=== PATIENT | male | born 1930 | race Caucasian/White ===

== ENCOUNTER → 2017-01-03 | Outpatient (CLI) | payer MEDICARE, BC ==
[~2017-01-03] MED LIST: ASPI81CH3 PO; ATOR20TA PO; BACT800T5 PO; BENEPOW8 PO; BIO-POW TOP; FOLBTAB3 PO; GLUCTAB PO; OCUVTAB PO; RAMI10CA35 PO
[2017-01-03 09:18] LABS: BICARBONATE 27.8 MEQ/L (21.0-32.0); POTASSIUM 4.1 MEQ/L (3.5-5.1)
== END ==
LOC: PLAB 06:38
PROVIDERS: ATTEND Urology
DX: N18.9 Chronic kidney disease, unspecified (principal); Z85.46 Personal history of malignant neoplasm of prostate
CPT/HCPCS: 36415; 80048; 84153

== ENCOUNTER → 2017-04-07 | Outpatient (CLI) | payer MEDICARE, BC | LOC: PLAB 15:45 | PROVIDERS: ATTEND Urology | DX: Z85.46 Personal history of malignant neoplasm of prostate (principal) | CPT/HCPCS: 36415; 84153; 84403 ==

== ENCOUNTER → 2017-07-18 | Outpatient (CLI) | payer MEDICARE, BC ==
[~2017-07-18] MED LIST changes: +ACET-822 PO; +ASPI81CH CHEW; -ATOR20TA PO; +ATOR20TA15 PO; +DORZ2SOL15 EACH EYE; +FOLBTAB2 PO; +HYDR-3533 PO; +LEUP1INJ8 SQ; +METF500T PO; +OCUVCAP2 PO; +RAMI10CA PO; -RAMI10CA35 PO
[2017-07-18 09:55] LABS: ANION GAP 6 MEQ/L (5-15); AST (GOT) 17 U/L (15-37); BICARBONATE 27.7 MEQ/L (21.0-32.0); BLOOD UREA NITROGEN 21 MG/DL (7-18); CHLORIDE 104 MEQ/L (98-107); GLOMERULAR FILTRATION RATE 50 ML/MIN (>89); GLUCOSE,FASTING 119 MG/DL (74-99); POTASSIUM 4.2 MEQ/L (3.5-5.1); SODIUM (NA) 138 MEQ/L (136-145)
[2017-07-18 10:00] LABS: ALKALINE PHOSPHATASE 60 U/L (45-117); ALT (GPT) 13 U/L (12-78); TOTAL BILIRUBIN ADULT 0.7 MG/DL (0.2-1.0)
[2017-07-18 10:04] LABS: HEMATOCRIT 43.2 % (39.0-51.0); MEAN CELL VOLUME 89.5 FL (80.0-100.0); MEAN CORPUSCULAR HEMOGLOBIN 30.3 PG (27.0-34.0); MEAN CORPUSCULAR HGB CONC 33.9 % (32.0-36.0); PLATELET COUNT 231 TH/MM3 (150-450); RED BLOOD COUNT 4.83 MIL/MM3 (4.50-5.90); RED CELL DISTRIBUTION WIDTH 13.7 % (11.6-17.2); REVIEW FLAG FINAL; WHITE BLOOD COUNT 9.3 TH/MM3 (4.0-11.0)
[2017-07-18 17:17] LABS: HEMOGLOBIN A1a 1.1 %; HEMOGLOBIN A1b 2.1 %; HEMOGLOBIN P3 3.9 %
== END ==
LOC: PLAB 06:47
PROVIDERS: ATTEND Family Medicine
DX: I12.9 Hypertensive chronic kidney disease with stage 1 through stage 4 chronic kidney disease, or unspecified chronic kidney disease (principal); N18.9 Chronic kidney disease, unspecified; R73.09 Other abnormal glucose; R97.20 Elevated prostate specific antigen [PSA]; Z85.46 Personal history of malignant neoplasm of prostate
CPT/HCPCS: 36415; 80053; 83036; 84153; 84154; 85027

== ENCOUNTER → 2017-08-21 | Outpatient (CLI) | payer MEDICARE, BC ==
[~2017-08-21] MED LIST changes: -ASPI81CH3 PO; -BACT800T5 PO; -BENEPOW8 PO; -BIO-POW TOP; -FOLBTAB3 PO; -GLUCTAB PO; -OCUVTAB PO
[2017-08-21 12:22] LABS: AUTOMATED NEUTROPHIL # 5.7 TH/MM3 (1.8-7.7); BASOPHIL # 0.1 TH/MM3 (0-0.2); BASOPHIL % 0.6 % (0.0-2.0); EOSINOPHIL # 0.2 TH/MM3 (0-0.4); EOSINOPHIL % 2.5 % (0.0-4.0); HEMATOCRIT 41.7 % (39.0-51.0); HEMO FLAGS DIFF FINAL; LYMPH % 25.6 % (9.0-44.0); LYMPHOCYTE # 2.3 TH/MM3 (1.0-4.8); MEAN CELL VOLUME 90.2 FL (80.0-100.0); MEAN CORPUSCULAR HEMOGLOBIN 29.9 PG (27.0-34.0); MEAN CORPUSCULAR HGB CONC 33.2 % (32.0-36.0); NEUT % 64.3 % (16.0-70.0); PLATELET COUNT 276 TH/MM3 (150-450); RED BLOOD COUNT 4.62 MIL/MM3 (4.50-5.90); RED CELL DISTRIBUTION WIDTH 13.9 % (11.6-17.2); WHITE BLOOD COUNT 8.9 TH/MM3 (4.0-11.0)
[2017-08-21 12:28] LABS: APTT (PATIENT) 25.4 SEC (24.3-30.1); INTERNATIONAL NORMALIZED RATIO 0.9 RATIO; PROTHROMBIN TIME - PATIENT 10.3 SEC (9.8-11.6)
[2017-08-21 12:39] LABS: BLOOD, URINE NEG (NEG); GLUCOSE,URINE NEG (NEG); KETONE, URINE NEG (NEG); NITRITE,URINE NEG (NEG); PH, URINE 6.5 (5.0-8.5); URINE COLOR YELLOW (YELLW/STRAW)
[2017-08-21 12:40] LABS: ANION GAP 5 MEQ/L (5-15); AST (GOT) 14 U/L (15-37); BICARBONATE 29.2 MEQ/L (21.0-32.0); BLOOD UREA NITROGEN 15 MG/DL (7-18); CHLORIDE 105 MEQ/L (98-107); GLOMERULAR FILTRATION RATE 54 ML/MIN (>89); GLUCOSE,FASTING 92 MG/DL (74-99); POTASSIUM 4.3 MEQ/L (3.5-5.1); SODIUM (NA) 139 MEQ/L (136-145)
[2017-08-21 12:41] LABS: ALT (GPT) 13 U/L (12-78)
[2017-08-21 12:43] LABS: ALKALINE PHOSPHATASE 65 U/L (45-117); TOTAL BILIRUBIN ADULT 0.3 MG/DL (0.2-1.0)
[2017-08-21 12:44] LABS: COMMENT (UR) CULT NOT INDICATED; CULTURE IF INDICATED CULT NOT INDICATED
--- NOTE | 2017-08-21 12:58 | RADRPT ---
EXAM DATE/TIME: 08/21/2017 12:40 [facility] COMPARISON: No previous studies available for comparison. INDICATIONS : Evlauate for communicable diseases. MEDICAL HISTORY : Brain Mass SURGICAL HISTORY : None. ENCOUNTER: Initial ACUITY: 1 day PAIN SCORE: 0/10 LOCATION: Bilateral chest FINDINGS: PA and lateral views of the chest demonstrate the lungs to be symmetrically aerated without evidence of mass, infiltrate or effusion. The cardiomediastinal contours are unremarkable. Osseous structure s are intact. CONCLUSION: No acute disease. Kristian Gill MD on August 21, 2017 at 12:57 Board Certified Radiologist. This report was verified electronically.
--- NOTE | 2017-08-22 17:04 | EKG ---
Date Performed: 08/21/2017 Time Performed: 11:53:02 PTAGE: 86 years EKG: Sinus rhythm WITH FIRST DEGREE AV BLOCK ABNORMAL ECG NO PREVIOUS TRACING DOCTOR: Divina Howell Interpretating Date/Time 08/22/2017 17:03:02
== END ==
LOC: CPRE 11:29
PROVIDERS: ATTEND Neurological Surgery
DX: Z01.812 Encounter for preprocedural laboratory examination (principal); Z01.811 Encounter for preprocedural respiratory examination; Z01.810 Encounter for preprocedural cardiovascular examination; E03.9 Hypothyroidism, unspecified; G90.09 Other idiopathic peripheral autonomic neuropathy; E29.1 Testicular hypofunction; I44.0 Atrioventricular block, first degree; Z79.01 Long term (current) use of anticoagulants
CPT/HCPCS: 36415; 71020; 80053; 81001; 85025; 85610; 85730; 93005

== ENCOUNTER 2017-08-22 08:00 | Inpatient (IN) | payer MEDICARE, BC ==
[~2017-08-22] VITALS: Ht 182.9 cm; Wt 95.5 kg
[~2017-08-22 08:00] MED LIST changes: -ACET-822 PO; -ASPI81CH CHEW; -FOLBTAB2 PO; -HYDR-3533 PO
[2017-08-22] MEDS ORDERED: FOLBTAB2 PO (14:03)
[2017-08-27] VITALS (7 sets, daily range): BP systolic 126; BP diastolic 66; PULSE 56–84; RESP 16; TEMP 97.8; O2SAT 97–99
[2017-08-27] MEDS ORDERED: ceFAZolin 2 GM PREMIX 50 ML IV SCH (06:15)
[2017-08-27] MEDS ORDERED: SODIUM CHLORID 0.9% 500 ML IV PRN (06:15)
[2017-08-27] MEDS ORDERED: CHLORHEXIDINE GLUCONATE 2 % 1 PACK (2 CLOTHS) TOPICAL PRN (06:15)
[2017-08-27] MEDS ORDERED: SODIUM CHLOR 0.9% 1000 ML INJ 1,000 ML IV SCH (06:15)
[2017-08-27] MEDS ORDERED: METOPROLOL TARTRATE 25 MG TAB PO PRN (06:15)
[2017-08-27] MEDS ORDERED: LACTATED RINGER'S 1000 ML IV PRN (06:15)
[2017-08-27] MEDS ORDERED: POVIDONE IODINE 5% (ANTISEPSIS KIT) 4 APPLICATIONS EACH NARE PRN (06:15)
[2017-08-27] MEDS ORDERED: INSULIN HUMAN REGULAR 1,000 UNITS/10 ML VIAL SQ PRN (06:15)
[2017-08-27] MEDS ORDERED: ACET-822 PO (06:51)
[2017-08-27] MEDS ORDERED: ASPI81CH CHEW (06:51)
[2017-08-27] MEDS ORDERED: GELFOAM SIZE 100 ONE (07:08)
[2017-08-27] MEDS ORDERED: GENTAMICIN SULFATE 80 MG/2 ML VIAL ONE (07:08)
[2017-08-27] MEDS ORDERED: THROMBIN (TOPICAL) 5,000 UNIT VIAL ONE (07:08)
[2017-08-27] MEDS ORDERED: MANNITOL INJ 100 ML ONE (07:12)
[2017-08-27] MEDS ORDERED: BUPIVACAINE/EPINEPHRINE 0.5% 50 ML VIAL ONE (07:12)
[2017-08-27] MEDS ORDERED: FAMOTIDINE 20 MG/2 ML VIAL ONE (07:46)
[2017-08-27] MEDS ORDERED: ACETAMINOPHEN 1000 MG/100 ML 100 ML IV ONE (07:46)
[2017-08-27] MEDS ORDERED: ARTIFICIAL TEARS OPTH OINT 3.5 APPLIC/3.5 GM TUBO ONE (08:04)
[2017-08-27] MEDS ORDERED: DEXAMETHASONE SOD PHOS 4 MG/ML VIAL ONE (09:17)
[2017-08-27] MEDS ORDERED: levETIRAcetam 500 MG/5 ML VIAL IV ONE (10:10)
[2017-08-27] MEDS ORDERED: VECURONIUM BROMIDE 20 MG VIAL IV ONE (12:00)
[2017-08-27] MEDS ORDERED: STERILE WATER FOR INJECTION 20 ML VIAL IV ONE (12:00)
[2017-08-27] MEDS ORDERED: ONDANSETRON HCL 4 MG/2 ML VIAL IV PUSH ONE (12:00)
[2017-08-27] MEDS ORDERED: ROCURONIUM INJ 50 MG/5 ML SYRINGE IV PUSH ONE (12:00)
[2017-08-27] MEDS ORDERED: ePHEDrine/NS 25 MG/5 ML SYR IV ONE (12:00)
[2017-08-27] MEDS ORDERED: LIDOCAINE HCL 1% PF 5 ML AMPULE OTHER ONE (12:00)
[2017-08-27] MEDS ORDERED: PHENYLEPH/NS 1000 MCG/10 ML SYR IV ONE (12:00)
[2017-08-27] MEDS ORDERED: PROPOFOL 200 MG/20 ML AMP IV ONE (12:00)
[2017-08-27] MEDS ORDERED: DEXAMETHASONE SOD PHOS 4 MG/ML VIAL IV ONE (12:00)
[2017-08-27] MEDS ORDERED: PHENYLEPHRINE HCL 10 MG/ML VIAL IV ONE (12:00)
[2017-08-27] MEDS ORDERED: SUGAMMADEX SODIUM 200 MG/2 ML VIAL IV PUSH ONE ×2 (12:33)
[2017-08-27] MEDS ORDERED: DO NOT ADM ANY ANTICOAGULANT DRUGS PRN (13:25)
[2017-08-27] MEDS ORDERED: ACETAMINOPHEN/HYDROcodone 325 MG/10 MG TAB PO PRN ×2 (13:30)
[2017-08-27] MEDS ORDERED: LABETALOL HCL 100 MG/20 ML VIAL IV PUSH PRN (13:30)
[2017-08-27] MEDS ORDERED: GLUCAGON 1 MG/ML VIAL OTHER PRN ×2 (13:30→17:00)
[2017-08-27] MEDS ORDERED: ZOLPIDEM TARTRATE 5 MG TAB PO PRN (13:30)
[2017-08-27] MEDS ORDERED: PROMETHAZINE INJ 25 MG/ML VIAL IM PRN (13:30)
[2017-08-27] MEDS ORDERED: niCARdipine INJ 25 MG in SODIUM CHLOR 0.9% 250 ML INJ 250 ML IV PRN (13:30)
[2017-08-27] MEDS ORDERED: SODIUM CHLORIDE 0.9% FLUSH 10 ML FLUSH IV FLUSH PRN (13:30)
[2017-08-27] MEDS ORDERED: MAGNESIUM HYDROXIDE SUSP 30 ML CUP PO PRN (13:30)
[2017-08-27] MEDS ORDERED: ACETAMINOPHEN 325 MG TAB PO PRN (13:30)
[2017-08-27] MEDS ORDERED: MENTHOL LOZENGE BUCCAL PRN (13:30)
[2017-08-27] MEDS ORDERED: ONDANSETRON HCL 4 MG/2 ML VIAL IV PUSH PRN (13:30)
[2017-08-27] MEDS ORDERED: MORPHINE SULFATE 4 MG/ML INJ IV PUSH PRN (13:30)
[2017-08-27] MEDS ORDERED: POTASSIUM CHLOR 20 MEQ PREMIX 100 ML IV PRN (13:30)
[2017-08-27] MEDS ORDERED: RESP: ALBUTEROL 2.5 MG/3 ML NEB (PRN) NEB (13:30)
[2017-08-27] MEDS ORDERED: CALCIUM GLUCONATE INJ 1 GM in SODIUM CHLORIDE 0.9% INJ 100 ML IV PRN (13:30)
[2017-08-27] MEDS ORDERED: cloNIDine HCL 0.1 MG TAB PO PRN (13:30)
[2017-08-27] MEDS ORDERED: MAGNESIUM SULFATE INJ 2 GM in SODIUM CHLORIDE 0.9% INJ 100 ML IV PRN (13:30)
[2017-08-27] MEDS ORDERED: ALUMINUM/MAGNESIUM/SIMETH 30 ML CUP PO PRN (13:30)
[2017-08-27] MEDS ORDERED: LORazepam 2 MG/ML VIAL IV PUSH PRN ×4 (13:30→17:00)
[2017-08-27] MEDS ORDERED: *LABETALOL HCL 100 MG/20 ML VIAL PERIprocedural Use ONLY ONE (13:41)
--- NOTE | 2017-08-27 13:58 | PD.OP ---
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 endotracheal by Salvatore Barr Surgeon: Mustapha Clay M.D. Entry Level Receptionist(s): Madie Cunningham Operation and Findings: Following initiation of general endotracheal anesthesia the patient had invasive lines and Rodriguez catheter in place along with sequential compression device. A gram of vancomycin and Keppra as well as 10 mg Decadron was administered intravenously and he was positioned supine and head turned to the left side and secured in the [place] 3 pin headrest. The BrainBitWave navigation system was then registered with external landmarks and good accuracy confirmed. A right curvilinear frontoparietal temporal incision area head shaved and prepped with ChloraPrep and sterilely draped in the usual sterile fashion. Incision was then made after infiltrating the scalp was 0.5% Marcaine with epinephrine solution a skin incision made and Zuleyka clips were used at the scalp edges for hemostasis and the flap retracted with hooks. Right temporalis muscle and fascia was also incised and detached from the temporal bone and retracted with hooks. The scalp was retracted exposing the orbital rim as well as the zygomatic arch. With an automated leather novelty parts cutter of right orbitozygomatic junction doni hole temporal bur hole made and then with the craniotome the bone flap was elevated. The orbital roof was also drilled down for exposure the medial sylvian fissure. The sphenoid wing was also resected with rongeurs exposing the frontal skull base floor and the anterior portion of the temporal fossa with resection of temporal bone with the Leksell. The dura was very vascular overlying this mass in the temporal aspect which is cauterized with bipolar cautery. The dura opened adjacent to this sphenoid wing mass which was attached and originating from the dura. Further dissection was undertaken using microtechnique with microscope magnification. Several large multilobular mass adherent to the dura overlying the sphenoid wing extending into the sylvian fissure and carotid cistern. Resection of this mass was undertaken lesly Harrison using microtechnique microscope magnification along with the BrainLab navigation guidance. A circumferential dissection was undertaken with a staged approach from the frontal and temporal aspect. The mass was compressing on the frontal and temporal lobes but not invading the pial surface. There were several arterial feeders from the middle cerebral artery branches which were cauterized and clipped and circumferential dissection with cauterization of the capsule and any veins was also undertaken. This mass measured close to 6 cm in diameter and is fairly large. More medially this was encapsulated around the middle cerebral artery branches which were dissected out and preserved and a gross total resection achieved. Bipolar cautery used for hemostasis in the resection bed which was then lined with Surgicel and no bleeding was encountered at this point. Cavity was filled with saline solution and dura was also resected along with this mass circumferentially. The dural defect was then repaired with DuraGen sutured to the surrounding dura. A 7 mm subdural drain was placed exiting the temporal doni hole site and tunnel on the scalp and secured the exit site with a 3-0 nylon tie connected to a drainage bag. Bone flap approximated using Patience mini plates and bur hole covers. The area was then copiously irrigated. The temporalis fascia was approximated and using 2-0 Vicryl sutures and the galea reapproximated using 3-0 Vicryl interrupted sutures and final scalp closure was with chelsea. The Shannon head was then removed and a sterile pressing dressing applied. There were no intraoperative complications and all sponge and needle count was correct at the end of the procedure. Estimated blood loss about 300 cc. Patient was extubated and taken to the recovery room. Mustapha Clay MD Aug 27, 2017 13:58
--- NOTE | 2017-08-27 14:03 | RADRPT ---
EXAM DATE/TIME: 08/27/2017 13:37 [facility] COMPARISON: CHEST PA & LAT, August 21, 2017, 12:40. INDICATIONS : Left subclavian central line placement. MEDICAL HISTORY : Brain mass. SURGICAL HISTORY : None. ENCOUNTER: Initial ACUITY: 1 day PAIN SCORE: Non-responsive. LOCATION: Bilateral chest FINDINGS: The heart is normal in size. The mediastinal contours are within normal limits. The exam demonstrates a new left subclavian central venous catheter placement. The catheter tip is at the junction of the innominate vein and the SVC. There is no pneumothorax. The bony structures are intact. CONCLUSION: 1. Left subclavian central line in satisfactory position. 2. No pneumothorax. Derick Benoit MD on August 27, 2017 at 14:01 Board Certified Radiologist. This report was verified electronically.
[2017-08-27 14:08] LABS: HEMATOCRIT 36.7 % (39.0-51.0); MEAN CELL VOLUME 88.1 FL (80.0-100.0); MEAN CORPUSCULAR HEMOGLOBIN 29.5 PG (27.0-34.0); MEAN CORPUSCULAR HGB CONC 33.5 % (32.0-36.0); PLATELET COUNT 224 TH/MM3 (150-450); RED BLOOD COUNT 4.17 MIL/MM3 (4.50-5.90); RED CELL DISTRIBUTION WIDTH 13.9 % (11.6-17.2); REVIEW FLAG FINAL; WHITE BLOOD COUNT 11.4 TH/MM3 (4.0-11.0)
[2017-08-27 14:17] LABS: BICARBONATE 22.1 MEQ/L (21.0-32.0); POTASSIUM 4.1 MEQ/L (3.5-5.1)
[2017-08-27] MEDS: NS + KCL 20 MEQ INJ 1,000 ML IV SCH (16:00)
[2017-08-27] MEDS ORDERED: DEXTROSE 50% IN WATER 50 ML SYRINGE IV PUSH PRN (16:30)
[2017-08-27] MEDS: DEXAMETHASONE SOD PHOS 4 MG/ML VIAL IV PUSH SCH ×2 (16:52→20:19)
[2017-08-27] MEDS: INSULIN ASPART SUPPLEMENTAL SCALE SQ SCH ×2 (17:00→20:19)
[2017-08-27] MEDS ORDERED: DEXTROSE 50% IN WATER 50 ML VIAL(D50) IV PUSH PRN (17:00)
[2017-08-27] MEDS ORDERED: INSULIN NovoLIN REGULAR SUPPLEMENTAL SCALE SQ SCH (17:00)
[2017-08-27] MEDS: ATORVASTATIN 20 MG TAB PO SCH (20:19)
[2017-08-27] MEDS: DOCUSATE SODIUM 100 MG CAP PO SCH (20:19)
[2017-08-27] MEDS: levETIRAcetam 500 MG TAB PO SCH (20:19)
[2017-08-27] MEDS: SODIUM CHLORIDE 0.9% FLUSH 10 ML FLUSH IV FLUSH SCH (20:20)
[2017-08-27] MEDS: DORZOLAMIDE/TIMOLOL OPTH SOLN 10 ML BTL EACH EYE SCH (20:25)
[2017-08-27] MEDS: RAMIPRIL 5 MG CAP PO SCH (20:44)
[2017-08-28] VITALS (13 sets, daily range): BP systolic 130–152; BP diastolic 65–77; PULSE 54–74; RESP 14–23; TEMP 97.6–99.1; O2SAT 95–98
[2017-08-28] MEDS: DEXAMETHASONE SOD PHOS 4 MG/ML VIAL IV PUSH SCH ×2 (03:06→10:43)
[2017-08-28] MEDS: NS + KCL 20 MEQ INJ 1,000 ML IV SCH ×2 (03:06→17:00)
[2017-08-28] MEDS ORDERED: EPINEPHrine HCL (1:10,000) 1 MG/10 ML SYRINGE ONE (03:14)
[2017-08-28] MEDS ORDERED: LIDOCAINE HCL 2% 100 MG/5 ML SYRINGE ONE (03:14)
[2017-08-28] MEDS ORDERED: ATROPINE SULFATE 1 MG/10 ML SYRINGE ONE (03:14)
[2017-08-28 03:48] LABS: ANION GAP 7 MEQ/L (5-15); AST (GOT) 18 U/L (15-37); BICARBONATE 24.8 MEQ/L (21.0-32.0); BLOOD UREA NITROGEN 16 MG/DL (7-18); CHLORIDE 107 MEQ/L (98-107); MAGNESIUM 1.9 MG/DL (1.5-2.5); POTASSIUM 4.3 MEQ/L (3.5-5.1); SODIUM (NA) 139 MEQ/L (136-145)
[2017-08-28 03:49] LABS: AUTOMATED NEUTROPHIL # 11.9 TH/MM3 (1.8-7.7); BASOPHIL % 0.1 % (0.0-2.0); HEMATOCRIT 35.7 % (39.0-51.0); HEMO FLAGS DIFF FINAL; LYMPH % 10.9 % (9.0-44.0); LYMPHOCYTE # 1.5 TH/MM3 (1.0-4.8); MEAN CELL VOLUME 88.7 FL (80.0-100.0); MEAN CORPUSCULAR HEMOGLOBIN 29.3 PG (27.0-34.0); MEAN CORPUSCULAR HGB CONC 33.1 % (32.0-36.0); MONO % 2.4 % (0.0-8.0); NEUT % 86.6 % (16.0-70.0); PLATELET COUNT 223 TH/MM3 (150-450); RED BLOOD COUNT 4.03 MIL/MM3 (4.50-5.90); RED CELL DISTRIBUTION WIDTH 13.9 % (11.6-17.2); WHITE BLOOD COUNT 13.7 TH/MM3 (4.0-11.0)
[2017-08-28 03:56] LABS: ALKALINE PHOSPHATASE 50 U/L (45-117); ALT (GPT) 13 U/L (12-78); GLOMERULAR FILTRATION RATE 64 ML/MIN (>89); TOTAL BILIRUBIN ADULT 0.4 MG/DL (0.2-1.0)
--- NOTE | 2017-08-28 05:26 | RADRPT ---
EXAM DATE/TIME: 08/28/2017 04:46 [facility] COMPARISON: No previous studies available for comparison. INDICATIONS : Post op tumor resection. RADIATION DOSE: 46.73 CTDIvol (mGy) ; Tabletop CT Head MEDICAL HISTORY : Carcinoma, prostate. Hypertension. Renal calculi. SURGICAL HISTORY : None. ENCOUNTER: Initial ACUITY: 1 day PAIN SCALE: 5/10 LOCATION: cranial TECHNIQUE: Multiple contiguous axial images were obtained of the head. Using automated exposure control and adj ustment of the mA and/or kV according to patient size, radiation dose was kept as low as reasonably a chievable to obtain optimal diagnostic quality images. DICOM format image data is available electro nically for review and comparison. FINDINGS: There is a right-sided craniotomy in the frontotemporal region with a drain in the right middle crani al fossa. There is mixed hemorrhage, and fluid in the right temporal lobe. There is some pneumocephal us anterior to the right frontal lobe. Mild edema extends into the more posterior right temporal lobe and inferior right frontal lobe. No significant shift. No hydrocephalus. Paranasal sinuses are clear . CONCLUSION: 1. Postoperative right craniotomy as above with drain in middle cranial fossa, reportedly status post tumor resection. See above discussion. Eddie Julien MD on August 28, 2017 at 5:22 Board Certified Radiologist. This report was verified electronically.
[2017-08-28] MEDS: INSULIN ASPART SUPPLEMENTAL SCALE SQ SCH ×4 (08:00→20:58)
[2017-08-28 08:26] LABS: CALCIUM-PROTEIN CORRECTED 8.4 MG/DL (8.5-10.1)
[2017-08-28] MEDS: ASPIRIN 81 MG CHEW TAB CHEW SCH (08:39)
[2017-08-28] MEDS: DOCUSATE SODIUM 100 MG CAP PO SCH ×2 (08:39→20:57)
[2017-08-28] MEDS: PANTOPRAZOLE SOD 40 MG DELAYED RELEASE TAB PO SCH (08:39)
[2017-08-28] MEDS: levETIRAcetam 500 MG TAB PO SCH ×2 (08:39→20:57)
[2017-08-28] MEDS: DORZOLAMIDE/TIMOLOL OPTH SOLN 10 ML BTL EACH EYE SCH ×2 (08:40→20:55)
[2017-08-28] MEDS: SODIUM CHLORIDE 0.9% FLUSH 10 ML FLUSH IV FLUSH SCH ×2 (08:52→20:55)
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
--- NOTE | 2017-08-28 09:04 | HHI.NSPN ---
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 He is sitting up in chair eating breakfast. Head wrapped in bandage dry. MGAALY drain in place draining well. Denies headache, nausea, vomiting, paresthesias. No chest pain, sob, or abdominal pain. (Kristian Wolfe) Review of Systems General: Negative for: fever, chills, insomnia Respiratory: Negative for: shortness of breath, cough, sputum Cardiovascular: Negative for: chest pain Gastrointestinal: Negative for: nausea, vomitting, diarrhea, constipation ( Kristian Wolfe) Exam Results Vital Signs Date Time Temp Pulse Resp B/P (MAP) Pulse Ox O2 Delivery O2 Flow Rate FiO2 08/28/17 06:00 74 08/28/17 04:00 98.8 18 149/75 (99) 96 08/28/17 02:00 Room Air 08/28/17 00:00 2.00 Intake and Output 08/28/17 08/28/17 08/29/17 08:00 16:00 00:00 Intake Total 81 ml Output Total 1140 ml Balance -1059 ml (Kristian Wolfe) Physical Examination Resp: CTA bilaterally Heart: NSR no murmurs Abd: Soft positive bs Skin: Head bandaged. Dry. MAGALY drain in place draining well. No cyanosis or erythema in extremities. Muscle: Moves all 4 extremities symmetrically Neuro: Pt awake and alert. Follows commands well. Speech clear and appropriate. Pupils equal. (Kristian Wolfe) Lab, Micro, Other Results Last Impressions Head CT 08/28/17 0600 Signed Impressions: Service Date/Time: August 04:46 - CONCLUSION: 1. Postoperative right craniotomy as above with drain in middle cranial fossa, reportedly status post tumor resection. See above discussion. Eddie Julien MD Chest X-Ray 08/27/17 0000 Signed Impressions: Service Date/Time: Sunday, August 27, 2017 13:37 - CONCLUSION: 1. Left subclavian central line in satisfactory position. 2. No pneumothorax. Derick Benoit MD Laboratory Tests Test 08/27/17 13:50 08/27/17 15:00 08/28/17 03:10 White Blood Count 11.4 TH/MM3 13.7 TH/MM3 Red Blood Count 4.17 MIL/MM3 4.03 MIL/MM3 Hemoglobin 12.3 GM/DL 11.8 GM/DL Hematocrit 36.7 % 35.7 % Mean Corpuscular Volume 88.1 FL 88.7 FL Mean Corpuscular Hemoglobin 29.5 PG 29.3 PG Mean Corpuscular Hemoglobin Concent 33.5 % 33.1 % Red Cell Distribution Width 13.9 % 13.9 % Platelet Count 224 TH/MM3 223 TH/MM3 Mean Platelet Volume 7.1 FL 7.5 FL Blood Urea Nitrogen 12 MG/DL 16 MG/DL Creatinine 1.10 MG/DL 1.10 MG/DL Random Glucose 201 MG/DL 171 MG/DL Calcium Level 8.1 MG/DL 7.9 MG/DL Magnesium Level 2.0 MG/DL 1.9 MG/DL Sodium Level 139 MEQ/L 139 MEQ/L Potassium Level 4.1 MEQ/L 4.3 MEQ/L Chloride Level 106 MEQ/L 107 MEQ/L Carbon Dioxide Level 22.1 MEQ/L 24.8 MEQ/L Anion Gap 11 MEQ/L 7 MEQ/L Estimat Glomerular Filtration Rate 64 ML/MIN 64 ML/MIN Nasal Screen MRSA (PCR) MRSA NOT DETECTED Neutrophils (%) (Auto) 86.6 % Lymphocytes (%) (Auto) 10.9 % Monocytes (%) (Auto) 2.4 % Eosinophils (%) (Auto) 0.0 % Basophils (%) (Auto) 0.1 % Neutrophils # (Auto) 11.9 TH/MM3 Lymphocytes # (Auto) 1.5 TH/MM3 Monocytes # (Auto) 0.3 TH/MM3 Eosinophils # (Auto) 0.0 TH/MM3 Basophils # (Auto) 0.0 TH/MM3 CBC Comment DIFF FINAL Differential Comment Total Protein 6.3 GM/DL Albumin 3.1 GM/DL Phosphorus Level 2.2 MG/DL Alkaline Phosphatase 50 U/L Aspartate Amino Transf (AST/SGOT) 18 U/L Alanine Aminotransferase (ALT/SGPT) 13 U/L Total Bilirubin 0.4 MG/DL Protein Corrected Calcium 8.4 MG/DL Free Thyroxine 1.20 NG/DL Thyroid Stimulating Hormone 3rd Gen 0.291 uIU/ML (Kristian Wolfe) Medical Decision Making Impression and Plan A: 86 y/o M s/p right anterior skull base/orbitozygomatic approach; right frontal 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 POD #1 P: Continue to monitor neuro exam Continue to increase activity with assistance. Continue with MAGALY drain. (Kristian Wolfe) Attending Statement The exam, history, and the medical decision-making described in the above note were completed with the assistance of the mid-level provider. I reviewed and agree with the findings presented. I attest that I had a [id number] encounter with the patient on the same day, and personally performed and documented my assessment and findings in the medical record. He is doing very well postoperatively with stable follow-up CT scan ahead and resected mass. Gross total resection was achieved. He is tolerating regular diet and set up in a chair for several hours. We will discontinue his MAGALY drain tomorrow. Increase activity status and ambulate with physical therapy. Pathology is consistent with meningioma. Updated at bedside. (Mustapha Clay MD) Kristian Wolfe Aug 28, 2017 09:04 Mustapha Clay MD Aug 28, 2017 17:57
[2017-08-28] MEDS: RAMIPRIL 5 MG CAP PO SCH ×2 (09:22→20:55)
[2017-08-28] MEDS: VITAMIN B CMPLX/VITC/FOLIC AC CAP PO SCH (09:22)
[2017-08-28] MEDS: MULTIVITAMIN-OPHTHALMIC 1 TAB PO SCH (09:22)
[2017-08-28 15:50] LABS: HEMOGLOBIN A1a 1.4 %; HEMOGLOBIN A1b 2.2 %; HEMOGLOBIN Ao 82.8 %; HEMOGLOBIN LA1C 2.5 %; HEMOGLOBIN P3 4.2 %
[2017-08-28] MEDS: ATORVASTATIN 20 MG TAB PO SCH (20:58)
[2017-08-29] VITALS (9 sets, daily range): BP systolic 127–154; BP diastolic 63–82; PULSE 54–70; RESP 13–23; TEMP 97.6–98.5; O2SAT 95–99
[2017-08-29 05:32] LABS: AUTOMATED NEUTROPHIL # 16.6 TH/MM3 (1.8-7.7); BASOPHIL % 0.1 % (0.0-2.0); HEMATOCRIT 34.3 % (39.0-51.0); HEMO FLAGS DIFF FINAL; LYMPH % 9.1 % (9.0-44.0); LYMPHOCYTE # 1.8 TH/MM3 (1.0-4.8); MEAN CELL VOLUME 89.3 FL (80.0-100.0); MEAN CORPUSCULAR HEMOGLOBIN 29.6 PG (27.0-34.0); MEAN CORPUSCULAR HGB CONC 33.1 % (32.0-36.0); MONO % 6.3 % (0.0-8.0); NEUT % 84.5 % (16.0-70.0); PLATELET COUNT 219 TH/MM3 (150-450); RED BLOOD COUNT 3.84 MIL/MM3 (4.50-5.90); RED CELL DISTRIBUTION WIDTH 13.9 % (11.6-17.2); WHITE BLOOD COUNT 19.7 TH/MM3 (4.0-11.0)
[2017-08-29 05:44] LABS: BICARBONATE 24.7 MEQ/L (21.0-32.0); POTASSIUM 4.3 MEQ/L (3.5-5.1)
[2017-08-29] MEDS: ASPIRIN 81 MG CHEW TAB CHEW SCH (07:58)
[2017-08-29] MEDS: DOCUSATE SODIUM 100 MG CAP PO SCH ×2 (07:58→20:06)
[2017-08-29] MEDS: POTASSIUM PHOSPHATE MONOBASIC 500 MG TAB PO SCH (07:59)
[2017-08-29] MEDS: PANTOPRAZOLE SOD 40 MG DELAYED RELEASE TAB PO SCH (07:59)
[2017-08-29] MEDS: SODIUM CHLORIDE 0.9% FLUSH 10 ML FLUSH IV FLUSH SCH ×2 (08:00→20:07)
[2017-08-29] MEDS: INSULIN ASPART SUPPLEMENTAL SCALE SQ SCH ×4 (08:00→20:06)
[2017-08-29] MEDS: MULTIVITAMIN-OPHTHALMIC 1 TAB PO SCH (08:12)
[2017-08-29] MEDS: VITAMIN B CMPLX/VITC/FOLIC AC CAP PO SCH (08:12)
[2017-08-29] MEDS: RAMIPRIL 5 MG CAP PO SCH ×2 (08:12→20:06)
[2017-08-29] MEDS: DORZOLAMIDE/TIMOLOL OPTH SOLN 10 ML BTL EACH EYE SCH ×2 (08:12→20:07)
[2017-08-29] MEDS: levETIRAcetam 500 MG TAB PO SCH ×2 (08:12→20:06)
--- NOTE | 2017-08-29 08:50 | HHI.NSPN ---
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 He is sitting up in chair eating breakfast. Head wrapped in bandage dry. MAGALY drain in place draining well. Denies headache, nausea, vomiting, paresthesias. No chest pain, sob, or abdominal pain. 08/29/17: Pt awake and alert. Sitting up in chair eating breakfast. No headache, nausea, vomiting, muscle weakness. Pt ambulated around floor with PT today. (Kristian Wolfe) Review of Systems General: Negative for: fever, chills, insomnia Respiratory: Negative for: shortness of breath, cough, sputum Cardiovascular: Negative for: chest pain Gastrointestinal: Negative for: nausea, vomitting, diarrhea, constipation ( Kristian Wolfe) Exam Results Vital Signs Date Time Temp Pulse Resp B/P (MAP) Pulse Ox O2 Delivery O2 Flow Rate FiO2 08/29/17 06:00 58 08/29/17 04:00 98.1 13 139/67 (91) 96 08/28/17 19:50 21 08/28/17 19:00 Room Air 08/28/17 00:00 2.00 Intake and Output 08/29/17 08/29/17 08/30/17 08:00 16:00 00:00 Intake Total 480 ml Output Total 1610 ml Balance -1130 ml (Kristian Wolfe) Physical Examination Resp: CTA bilaterally Heart: NSR no murmurs Abd: Soft positive bs Skin: Head bandaged. Dry. MAGALY drain in place draining well. No cyanosis or erythema in extremities. Muscle: Moves all 4 extremities symmetrically Neuro: Pt awake and alert. Follows commands well. Speech clear and appropriate. Pupils equal. (Kristian Wolfe) Lab, Micro, Other Results Last Impressions Head CT 08/28/17 0600 Signed Impressions: Service Date/Time: August 04:46 - CONCLUSION: 1. Postoperative right craniotomy as above with drain in middle cranial fossa, reportedly status post tumor resection. See above discussion. Eddie Julien MD Chest X-Ray 08/27/17 0000 Signed Impressions: Service Date/Time: Sunday, August 27, 2017 13:37 - CONCLUSION: 1. Left subclavian central line in satisfactory position. 2. No pneumothorax. Derick Benoit MD Laboratory Tests Test 08/29/17 05:00 White Blood Count 19.7 TH/MM3 Red Blood Count 3.84 MIL/MM3 Hemoglobin 11.4 GM/DL Hematocrit 34.3 % Mean Corpuscular Volume 89.3 FL Mean Corpuscular Hemoglobin 29.6 PG Mean Corpuscular Hemoglobin Concent 33.1 % Red Cell Distribution Width 13.9 % Platelet Count 219 TH/MM3 Mean Platelet Volume 7.5 FL Neutrophils (%) (Auto) 84.5 % Lymphocytes (%) (Auto) 9.1 % Monocytes (%) (Auto) 6.3 % Eosinophils (%) (Auto) 0.0 % Basophils (%) (Auto) 0.1 % Neutrophils # (Auto) 16.6 TH/MM3 Lymphocytes # (Auto) 1.8 TH/MM3 Monocytes # (Auto) 1.2 TH/MM3 Eosinophils # (Auto) 0.0 TH/MM3 Basophils # (Auto) 0.0 TH/MM3 CBC Comment DIFF FINAL Differential Comment Blood Urea Nitrogen 21 MG/DL Creatinine 1.09 MG/DL Random Glucose 140 MG/DL Calcium Level 8.1 MG/DL Sodium Level 139 MEQ/L Potassium Level 4.3 MEQ/L Chloride Level 108 MEQ/L Carbon Dioxide Level 24.7 MEQ/L Anion Gap 6 MEQ/L Estimat Glomerular Filtration Rate 64 ML/MIN (Kristian Wolfe) Medical Decision Making Impression and Plan A: 86 y/o M s/p right anterior skull base/orbitozygomatic approach; right frontal 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 POD #2 P: Continue to monitor neuro exam Continue to increase activity with assistance. Discontinue MAGALY drain. Transfer to N. (Kristian Wolfe) Attending Statement The exam, history, and the medical decision-making described in the above note were completed with the assistance of the mid-level provider. I reviewed and agree with the findings presented. I attest that I had a [id number] encounter with the patient on the same day, and personally performed and documented my assessment and findings in the medical record. No complaints. Tolerating diet and ambulating to the bathroom independently. This be discharged home with home PT over the next couple of days if stable. Discussed with at bedside. (Mustapha Clay MD) Kristian Wolfe Aug 29, 2017 08:50 Mustapha Clay MD Aug 29, 2017 18:18
[2017-08-29] MEDS ORDERED: LIDOCAINE 2%/EPINEPHrine 1:100,000 30ML MDV INFIL ONE (09:00)
--- NOTE | 2017-08-29 09:00 | HHI.FPPN ---
Subjective Remarks Patient seen and examined bedside. Patient has no acute complaints overnight; slept well and has been eating and drinking without difficulty. Patient denies any nausea/vomiting. Patient denies any bowel movements as of now. Patient denies any chest pain/ shortness of breath/ dizziness. (Lisa Smith MD R2) Objective Vitals Vital Signs Date Time Temp Pulse Resp B/P (MAP) Pulse Ox O2 Delivery O2 Flow Rate FiO2 08/29/17 06:00 58 08/29/17 04:00 56 08/29/17 04:00 98.1 56 13 139/67 (91) 96 08/29/17 02:00 57 08/29/17 00:00 56 08/29/17 00:00 98.4 56 13 148/66 (93) 95 08/28/17 22:00 55 08/28/17 20:00 63 08/28/17 20:00 98.2 61 14 139/75 (96) 96 08/28/17 19:50 95 21 08/28/17 19:00 98 Room Air 08/28/17 18:00 70 08/28/17 16:00 98.2 58 16 140/65 (90) 95 08/28/17 16:00 58 08/28/17 14:00 62 08/28/17 12:00 60 08/28/17 12:00 98.5 60 23 130/70 (90) 98 08/28/17 10:00 54 I/O 08/28/17 08/28/17 08/28/17 08/29/17 08/29/17 08/29/17 07:00 15:00 23:00 07:00 15:00 23:00 Intake Total 81 ml 517 ml 770 ml 480 ml Output Total 1140 ml 725 ml 1680 ml Balance -1059 ml 517 ml 45 ml -1200 ml Intake Oral 240 ml 480 ml IV Total 81 ml 517 ml 530 ml Output Urine Total 1000 ml 725 ml 1550 ml Drainage Total 140 ml 130 ml # Bowel Movements 0 0 (Lisa Smith MD R2) Result Diagram: 08/29/17 0500 08/29/17 0500 Objective Remarks GENERAL: In no acute distress. Sitting comfortably and eating breakfast. SKIN: Warm and dry. HEAD: Normocephalic. EYES: No scleral icterus. No injection or drainage. NECK: Supple, trachea midline. No JVD or lymphadenopathy. CARDIOVASCULAR: Regular rate and rhythm without murmurs, gallops, or rubs. RESPIRATORY: Breath sounds equal bilaterally. No accessory muscle use. GASTROINTESTINAL: Abdomen soft, non-tender, nondistended. MUSCULOSKELETAL: No cyanosis, or edema. BACK: Nontender without obvious deformity. No CVA tenderness. (Lisa Smith MD R2) A/P Assessment and Plan 86-year-old male, history of prostate cancer, postop day #1 from cranial tumor resection. We are consulted to manage his comorbid medical conditions. (Lisa Smith MD R2) Attending Attestation Patient examined and case discussed with resident physicians I have read the above note and agree with the assessment/plan discussed with me I was involved in all medical decision making for this patient Lexx Dumont M.D. 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 - Postop day #2: right frontal temporal craniotomy for meningioma -Follow up neurosurgery recommendation: Continue MAGALY drain, continue Keppra 500 twice a day Follow up pathology - (2) Hypertension ICD Codes: I10 - Essential (primary) hypertension Status: Chronic Plan: Continue home medications - Ramipril 10 twice a day Follow-up blood pressures (3) Chronic kidney disease (CKD) ICD Codes: N18.9 - Chronic kidney disease, unspecified Status: Resolved Plan: Baseline creatinine 1.26 Creatinine 1.10 today (4) Diabetes mellitus ICD Codes: E11.9 - Type 2 diabetes mellitus without complications Plan: Fingersticks: 149-223 Continue home medications - Metformin 500 daily - Continue insulin sliding scale (5) History of chest pain ICD Codes: Z87.898 - Personal history of other specified conditions Status: Chronic Plan: Continue home medications - Statin - Aspirin (6) Hypoalbuminemia ICD Codes: E88.09 - Other disorders of plasma-protein metabolism, not elsewhere classified Status: Acute Plan: Albumin 3.1 Continue boost shakes (7) Hypophosphatemia ICD Codes: E83.39 - Other disorders of phosphorus metabolism Status: Acute Plan: Phosphate 2.2 Continue K-Phos 500 twice a day (Lisa Smith MD R2) Problem Qualifiers (1) Chronic kidney disease (CKD): Qualified Codes: 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
[2017-08-29] MEDS ORDERED: LIDOCAINE 2%/EPINEPHrine 1:100,000 20ML MDV INFIL ONE (10:00)
[2017-08-29] MEDS ORDERED: HYDR-3533 PO (17:21)
[2017-08-29] MEDS: ATORVASTATIN 20 MG TAB PO SCH (20:06)
[2017-08-30 01:18] VITALS: BP 143/65; PULSE 69; RESP 17; TEMP 97.9; O2SAT 96
[2017-08-30 05:42] VITALS: BP 159/76; PULSE 64; RESP 17; TEMP 97.8; O2SAT 98
[2017-08-30] MEDS: INSULIN ASPART SUPPLEMENTAL SCALE SQ SCH ×4 (08:00→20:56)
[2017-08-30 08:06] VITALS: BP 153/79; PULSE 74; RESP 20; TEMP 98.4; O2SAT 94
[2017-08-30] MEDS: POTASSIUM PHOSPHATE MONOBASIC 500 MG TAB PO SCH (08:31)
[2017-08-30] MEDS: DOCUSATE SODIUM 100 MG CAP PO SCH ×2 (08:31→20:56)
[2017-08-30] MEDS: ASPIRIN 81 MG CHEW TAB CHEW SCH (08:31)
[2017-08-30] MEDS: PANTOPRAZOLE SOD 40 MG DELAYED RELEASE TAB PO SCH (08:31)
[2017-08-30] MEDS: levETIRAcetam 500 MG TAB PO SCH ×2 (08:31→20:56)
[2017-08-30] MEDS: RAMIPRIL 5 MG CAP PO SCH ×2 (08:31→20:56)
[2017-08-30] MEDS: VITAMIN B CMPLX/VITC/FOLIC AC CAP PO SCH (08:31)
[2017-08-30] MEDS: SODIUM CHLORIDE 0.9% FLUSH 10 ML FLUSH IV FLUSH SCH ×2 (08:32→20:57)
[2017-08-30] MEDS: DORZOLAMIDE/TIMOLOL OPTH SOLN 10 ML BTL EACH EYE SCH ×2 (08:34→20:56)
[2017-08-30] MEDS: MULTIVITAMIN-OPHTHALMIC 1 TAB PO SCH (08:49)
[2017-08-30 12:02] VITALS: BP 127/65; PULSE 66; RESP 20; TEMP 97.8; O2SAT 100
--- NOTE | 2017-08-30 12:04 | HHI.FPPN ---
Subjective Remarks Patient had no acute events overnight. Patient continues to deny any pain. Patient denies any chest pain/redness of breath/dizziness. The MAGALY drain has remained in place. Per the patient neurosurgery informed him that he can go home either today or tomorrow, and he looks forward to going home. (Lisa Smith MD R2) Objective Vitals Vital Signs Date Time Temp Pulse Resp B/P (MAP) Pulse Ox O2 Delivery O2 Flow Rate FiO2 08/30/17 08:06 98.4 74 20 153/79 (103) 94 08/30/17 05:42 97.8 64 17 159/76 (103) 98 08/30/17 01:18 97.9 69 17 143/65 (91) 96 08/29/17 20:00 97.6 70 20 154/82 (106) 98 08/29/17 16:00 98.1 63 16 144/77 (99) 96 08/29/17 12:00 97.6 54 16 127/63 (84) 99 08/29/17 12:00 54 I/O 08/29/17 08/29/17 08/29/17 08/30/17 08/30/17 08/30/17 07:00 15:00 23:00 07:00 15:00 23:00 Intake Total 480 ml 640 ml 240 ml Output Total 1680 ml 850 ml Balance -1200 ml -210 ml 240 ml Intake Oral 480 ml 640 ml 240 ml Output Urine Total 1550 ml 850 ml Drainage Total 130 ml # Voids 1 # Bowel Movements 0 (Lisa Smith MD R2) Result Diagram: 08/29/17 0500 08/29/17 0500 Objective Remarks GENERAL: In no acute distress. Sitting comfortably and eating breakfast. SKIN: Warm and dry. HEAD: Normocephalic. EYES: No scleral icterus. No injection or drainage. NECK: Supple, trachea midline. No JVD or lymphadenopathy. CARDIOVASCULAR: Regular rate and rhythm without murmurs, gallops, or rubs. RESPIRATORY: Breath sounds equal bilaterally. No accessory muscle use. GASTROINTESTINAL: Abdomen soft, non-tender, nondistended. MUSCULOSKELETAL: No cyanosis, or edema. BACK: Nontender without obvious deformity. No CVA tenderness. (Lisa Smith MD R2) A/P Assessment and Plan 86-year-old male, history of prostate cancer, postop day #1 from cranial tumor resection. We are consulted to manage his comorbid medical conditions. (Lisa Smith MD R2) Attending Attestation Pt. examined and case discussed with resident physicians. I have read the above note and agree with the assessment and plan as discussed with me. I was involved in all medical decision making for this patient. 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 (2) Hypertension ICD Codes: I10 - Essential (primary) hypertension Status: Chronic Plan: Continue home medications - Ramipril 10 twice a day Follow-up blood pressures (3) Chronic kidney disease (CKD) ICD Codes: N18.9 - Chronic kidney disease, unspecified Status: Resolved Plan: Baseline creatinine 1.26 Creatinine 1.09 today (4) Diabetes mellitus ICD Codes: E11.9 - Type 2 diabetes mellitus without complications Plan: FS WNL Continue home medications - Metformin 500 daily - Continue insulin sliding scale (5) History of chest pain ICD Codes: Z87.898 - Personal history of other specified conditions Status: Chronic Plan: Continue home medications - Statin - Aspirin (6) Hypoalbuminemia ICD Codes: E88.09 - Other disorders of plasma-protein metabolism, not elsewhere classified Status: Acute Plan: Albumin 3.1 Continue boost shakes (7) Hypophosphatemia ICD Codes: E83.39 - Other disorders of phosphorus metabolism Status: Acute Plan: Phosphorus 3.0 today Continue K-Phos 500 twice a day Phosphorus 2.2 on admission (Lisa Smith MD R2) Problem Qualifiers (1) Chronic kidney disease (CKD): Qualified Codes: 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
--- NOTE | 2017-08-30 14:09 | HHI.NSPN ---
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 He is sitting up in chair eating breakfast. Head wrapped in bandage dry. MAGALY drain in place draining well. Denies headache, nausea, vomiting, paresthesias. No chest pain, sob, or abdominal pain. 08/29/17: Pt awake and alert. Sitting up in chair eating breakfast. No headache, nausea, vomiting, muscle weakness. Pt ambulated around floor with PT today. 08/30/17: Pt AAOx3. Patient has no physical complaints. 9= Exam Results Vital Signs Date Time Temp Pulse Resp B/P (MAP) Pulse Ox O2 Delivery O2 Flow Rate FiO2 08/30/17 12:02 97.8 66 20 127/65 (85) 100 08/29/17 07:00 Room Air 08/28/17 19:50 21 08/28/17 00:00 2.00 Intake and Output 08/30/17 08/30/17 08/31/17 08:00 16:00 00:00 Intake Total 240 ml Balance 240 ml Physical Examination Resp: CTA bilaterally Heart: NSR no murmurs Abd: Soft positive bs Skin: Head bandaged. Dry. MAGALY drain in place draining well. No cyanosis or erythema in extremities. Muscle: Moves all 4 extremities symmetrically Neuro: Pt awake and alert. Follows commands well. Speech clear and appropriate. Pupils equal. Lab, Micro, Other Results Current Medications Medications (Trade) Dose Ordered Sig/Tam Route PRN Reason Start Time Stop Time Status Last Admin Dose Admin Aspirin (Aspirin Chew) 81 mg DAILY CHEW 08/28/17 09:00 08/30/17 08:31 Atorvastatin Calcium (Lipitor) 20 mg HS PO 08/27/17 21:00 08/29/17 20:06 Dorzolamide/ Timolol (Cosopt 2-0.5% Opth Soln) 1 drop BID EACH EYE 08/27/17 21:00 08/30/17 08:34 Vitamin B Complex/ Vit C/Folic Acid (Nephrocaps) 1 cap DAILY PO 08/28/17 09:00 08/30/17 08:31 Vit C/Vit E/Zinc/ Copper/Lutein (Ocuvite) 1 tab DAILY PO 08/28/17 09:00 08/30/17 08:49 Ramipril (Altace) 10 mg BID PO 08/27/17 21:00 08/30/17 08:31 Sodium Chloride (NS Flush) 2 ml UNSCH PRN IV FLUSH FLUSH AFTER USING IV ACCESS 08/27/17 13:30 Sodium Chloride (NS Flush) 2 ml BID IV FLUSH 08/27/17 21:00 08/30/17 08:32 Levetriacetam (Keppra) 500 mg Q12H PO 08/27/17 21:00 08/30/17 08:31 Lorazepam (Ativan Inj) 1 mg Q1H PRN IV PUSH SEIZURES 08/27/17 13:30 Docusate Sodium (Colace) 100 mg BID PO 08/27/17 21:00 08/30/17 08:31 Magnesium Hydroxide (Milk Of Magnesia Liq) 30 ml DAILY PRN PO CONSTIPATION 08/27/17 13:30 Al Hydrox/Mg Hydrox/Simethicone (Mag-Al Plus Susp Liq) 30 ml Q6H PRN PO DYSPEPSIA 08/27/17 13:30 Pantoprazole Sodium (Protonix) 40 mg DAILY PO 08/28/17 09:00 08/30/17 08:31 Ondansetron HCl (Zofran Inj) 4 mg Q6H PRN IV PUSH NAUSEA OR VOMITING 08/27/17 13:30 Promethazine HCl (Phenergan Inj) 25 mg Q4H PRN IM NAUSEA OR VOMITING 08/27/17 13:30 Calcium Gluconate 1 gm/Sodium Chloride 110 ml @ 110 mls/hr UNSCH PRN IV SEE LABEL COMMENTS 08/27/17 13:30 08/28/17 12:18 Potassium Chloride 100 ml @ 50 mls/hr UNSCH PRN IV POTASSIUM LESS THAN 4 08/27/17 13:30 Magnesium Sulfate 2 gm/Sodium Chloride 104 ml @ 100 mls/hr UNSCH PRN IV MAGNESIUM LESS THAN 2 08/27/17 13:30 Acetaminophen/ Hydrocodone Bitart ([place] 10-325 Mg) 1 tab Q4H PRN PO PAIN SCALE 1 TO 5 08/27/17 13:30 Acetaminophen/ Hydrocodone Bitart ([place] 10-325 Mg) 2 tab Q4H PRN PO PAIN SCALE 6 TO 10 08/27/17 13:30 Morphine Sulfate (Morphine Inj) 2 mg Q2H PRN IV PUSH breakthrough pain >6 08/27/17 13:30 Labetalol HCl (Trandate Inj) 10 mg Q1H PRN IV PUSH SYS BP GREATER THAN 170 MMHG 08/27/17 13:30 08/28/17 18:30 Clonidine (Catapres) 0.1 mg Q6H PRN PO SYS BP GREATER THAN 170 MMHG 08/27/17 13:30 Acetaminophen (Tylenol) 650 mg Q4H PRN PO TEMPERATURE > 101.5 F 08/27/17 13:30 Menthol ([place]) 1 lozenge UNSCH PRN BUCCAL SORE THROAT 08/27/17 13:30 Zolpidem Tartrate (Ambien) 5 mg HS PRN PO INSOMNIA 08/27/17 13:30 Albuterol Sulfate (Albuterol Neb) 2.5 mg Q4HR NEB PRN NEB WHEEZING 08/27/17 13:30 Nicardipine HCl 25 mg/Sodium Chloride 260 ml @ 52 mls/hr TITRATE PRN IV Blood pressure management 08/27/17 13:30 08/27/17 17:35 Lorazepam (Ativan Inj) 1 mg Q1H PRN IV PUSH SEIZURES 08/27/17 16:45 Lorazepam (Ativan Inj) 1 mg Q1H PRN IV PUSH SEIZURES 08/27/17 16:45 Lorazepam (Ativan Inj) 1 mg Q1H PRN IV PUSH SEIZURES 08/27/17 17:00 Dextrose (D50w (Vial) Inj) 50 ml UNSCH PRN IV PUSH HYPOGLYCEMIA-SEE COMMENTS 08/27/17 17:00 Glucagon (Glucagon Inj) 1 mg UNSCH PRN OTHER HYPOGLYCEMIA-SEE COMMENTS 08/27/17 17:00 Insulin Aspart (NovoLOG SUPPLEMENTAL SCALE) 1 ACHS SLIDING SCALE SQ 08/27/17 17:00 08/30/17 11:54 Potassium Phosphate (K-Phos) 500 mg DAILY PO 08/29/17 09:00 08/30/17 08:[address] 08/28/17 0600 Signed Impressions: Service Date/Time: August 04:46 - CONCLUSION: 1. Postoperative right craniotomy as above with drain in middle cranial fossa, reportedly status post tumor resection. See above discussion. Eddie Julien MD Chest X-Ray 08/27/17 0000 Signed Impressions: Service Date/Time: Sunday, August 27, 2017 13:37 - CONCLUSION: 1. Left subclavian central line in satisfactory position. 2. No pneumothorax. 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 Neuro Stable. - Discharge home in am 10 Joe Lundy MD Aug 30, 2017 14:09
[2017-08-30 17:15] VITALS: BP 138/65; PULSE 60; RESP 20; TEMP 97.4; O2SAT 97
[2017-08-30 20:30] VITALS: BP 171/86; PULSE 51; RESP 17; TEMP 98.6; O2SAT 96
[2017-08-30] MEDS: ATORVASTATIN 20 MG TAB PO SCH (20:56)
[2017-08-31 00:41] VITALS: BP 171/81; PULSE 69; RESP 17; TEMP 98.6; O2SAT 96
[2017-08-31 04:52] VITALS: BP 132/73; PULSE 61; RESP 17; TEMP 97.8; O2SAT 96
[2017-08-31 05:49] LABS: AUTOMATED NEUTROPHIL # 7.8 TH/MM3 (1.8-7.7); BASOPHIL # 0.1 TH/MM3 (0-0.2); BASOPHIL % 0.5 % (0.0-2.0); EOSINOPHIL # 0.2 TH/MM3 (0-0.4); EOSINOPHIL % 1.9 % (0.0-4.0); HEMATOCRIT 32.3 % (39.0-51.0); HEMO FLAGS DIFF FINAL; LYMPH % 23.3 % (9.0-44.0); LYMPHOCYTE # 2.7 TH/MM3 (1.0-4.8); MEAN CELL VOLUME 89.5 FL (80.0-100.0); MEAN CORPUSCULAR HEMOGLOBIN 29.6 PG (27.0-34.0); MEAN CORPUSCULAR HGB CONC 33.1 % (32.0-36.0); MONO % 7.4 % (0.0-8.0); NEUT % 66.9 % (16.0-70.0); PLATELET COUNT 203 TH/MM3 (150-450); RED BLOOD COUNT 3.61 MIL/MM3 (4.50-5.90); RED CELL DISTRIBUTION WIDTH 13.7 % (11.6-17.2); WHITE BLOOD COUNT 11.6 TH/MM3 (4.0-11.0)
[2017-08-31 06:12] LABS: BICARBONATE 26.2 MEQ/L (21.0-32.0); POTASSIUM 3.9 MEQ/L (3.5-5.1)
[2017-08-31] MEDS: INSULIN ASPART SUPPLEMENTAL SCALE SQ SCH ×2 (08:00→11:33)
[2017-08-31 08:17] VITALS: BP 154/78; PULSE 62; RESP 20; TEMP 98.4; O2SAT 95
[2017-08-31] MEDS: ASPIRIN 81 MG CHEW TAB CHEW SCH (08:27)
[2017-08-31] MEDS: POTASSIUM PHOSPHATE MONOBASIC 500 MG TAB PO SCH (08:27)
[2017-08-31] MEDS: MULTIVITAMIN-OPHTHALMIC 1 TAB PO SCH (08:27)
[2017-08-31] MEDS: PANTOPRAZOLE SOD 40 MG DELAYED RELEASE TAB PO SCH (08:27)
[2017-08-31] MEDS: DORZOLAMIDE/TIMOLOL OPTH SOLN 10 ML BTL EACH EYE SCH (08:27)
[2017-08-31] MEDS: SODIUM CHLORIDE 0.9% FLUSH 10 ML FLUSH IV FLUSH SCH (08:27)
[2017-08-31] MEDS: DOCUSATE SODIUM 100 MG CAP PO SCH (08:27)
[2017-08-31] MEDS: VITAMIN B CMPLX/VITC/FOLIC AC CAP PO SCH (08:27)
[2017-08-31] MEDS: levETIRAcetam 500 MG TAB PO SCH (08:27)
[2017-08-31] MEDS: RAMIPRIL 5 MG CAP PO SCH (08:27)
--- NOTE | 2017-08-31 08:35 | HHI.FPPN ---
Subjective Remarks No acute events overnight. Except for some hypertension up to 170s over 80s, patient has remained afebrile with vital signs stable overnight. Patient reports that he is ready to go home. He denies any shortness of breath or chest pain. He reports that he feels neurologically intact and strong enough to walk out of the hospital. (Emil Hdz MD R2) Objective Vitals Vital Signs Date Time Temp Pulse Resp B/P (MAP) Pulse Ox O2 Delivery O2 Flow Rate FiO2 08/31/17 08:17 98.4 62 20 154/78 (103) 95 08/31/17 04:52 97.8 61 17 132/73 (92) 96 08/31/17 00:41 98.6 69 17 171/81 (111) 96 08/30/17 20:30 98.6 51 17 171/86 (114) 96 08/30/17 17:15 97.4 60 20 138/65 (89) 97 08/30/17 12:02 97.8 66 20 127/65 (85) 100 I/O 08/30/17 08/30/17 08/30/17 08/31/17 08/31/17 08/31/17 06:59 14:59 22:59 06:59 14:59 22:59 Intake Total 240 ml 720 ml 480 ml Balance 240 ml 720 ml 480 ml Intake Oral 240 ml 720 ml 480 ml # Voids 1 2 3 # Bowel Movements 1 (Emil Hdz MD R2) Result Diagram: 08/31/17 0520 08/31/17 0520 Imaging Last Impressions Head CT 08/28/17 0600 Signed Impressions: Service Date/Time: August 04:46 - CONCLUSION: 1. Postoperative right craniotomy as above with drain in middle cranial fossa, reportedly status post tumor resection. See above discussion. Eddie Julien MD Chest X-Ray 08/27/17 0000 Signed Impressions: Service Date/Time: Sunday, August 27, 2017 13:37 - CONCLUSION: 1. Left subclavian central line in satisfactory position. 2. No pneumothorax. Derick Benoit MD Objective Remarks GENERAL: Elderly gentleman in no acute distress. Sitting comfortably. SKIN: Warm and dry. HEAD: Normocephalic. Well-healing surgical incision with [place] on the right side of head. MAGALY drain has been removed. EYES: No scleral icterus. No injection or drainage. NECK: Supple, trachea midline. No JVD or lymphadenopathy. CHEST: Central line in left upper chest CARDIOVASCULAR: Regular rate and rhythm without murmurs, gallops, or rubs. RESPIRATORY: Breath sounds equal bilaterally. No accessory muscle use. GASTROINTESTINAL: Abdomen soft, non-tender, nondistended. MUSCULOSKELETAL: No cyanosis or edema. NEUROLOGICAL: Alert and oriented. Afocal. Normal sensation and motor and strength bilaterally. Normal speech. Procedures Date of Surgery: Aug 27, 2017 Preoperative Diagnosis: Right large medial sphenoid wing meningioma Postoperative Diagnosis: Same Procedure: Right anterior skull base/orbitozygomatic approach; right frontotemporal craniotomy for sphenoid wing meningioma resection; [facility] intraoperative navigation; microsurgical technique (Emil Hdz MD R2) A/P Assessment and Plan 86-year-old male, history of prostate cancer, postop day #4 from cranial tumor resection. We are consulted to manage his comorbid medical conditions. Discharge Planning Plan for discharge today, per neurosurgery recommendations. (Emil Hdz MD R2) Attending Attestation Pt. examined and case discussed with resident physicians. I have read the above note and agree with the assessment and plan as discussed with me. I was involved in all medical decision making for this patient. 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 Plan: - Postop day #4: right frontal temporal craniotomy for meningioma - Follow up neurosurgery recommendation: MAGALY drain removed, continue Keppra 500 twice a day - pathology: MENINGES, RIGHT SPHENOID WING, EXCISION:- MENINGIOMA, MENINGOTHELIOMATOUS TYPE (WHO GRADE 1) (2) Hypertension ICD Codes: I10 - Essential (primary) hypertension Status: Chronic Plan: - Continue home medications, including: - Ramipril 10 twice a day - Follow-up with PCP (3) Chronic kidney disease (CKD) ICD Codes: N18.9 - Chronic kidney disease, unspecified Status: Resolved Plan: Baseline creatinine 1.26 Creatinine 1.03 today. (4) Diabetes mellitus ICD Codes: E11.9 - Type 2 diabetes mellitus without complications Plan: FS WNL Continue home medications: - Metformin 500 daily - F/u with PCP (5) History of chest pain ICD Codes: Z87.898 - Personal history of other specified conditions Status: Chronic Plan: Continue home medications: - Statin - Aspirin (6) Hypoalbuminemia ICD Codes: E88.09 - Other disorders of plasma-protein metabolism, not elsewhere classified Status: Acute Plan: Albumin 3.1 -Continue boost shakes (7) Hypophosphatemia ICD Codes: E83.39 - Other disorders of phosphorus metabolism Status: Acute Plan: Phosphorus 2.2 on admission. Phosphorus 3.0 yesterday. Patient received K -Phos 500 twice a day. (Emil Hdz MD R2) Emil Hdz MD R2 Aug 31, 2017 08:35 Lexx Dumont MD Aug 31, 2017 19:36
--- NOTE | 2017-08-31 08:36 | HHI.DCPOC ---
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 * To maintain your health at the optimal level, please follow up with neurosurgery and Dr. Dumont. Directions to Meet Your Goals Take your medications as prescribed Follow your dietary instruction Follow activity as directed Keep your appointments as scheduled Take your immunizations and boosters as scheduled If your symptoms worsen call your PCP, if no PCP go to Urgent Care Center or Emergency Room Smoking is Dangerous to Your Health. Avoid second hand smoke Call the 24-hour hour crisis hotline for domestic abuse at Emil Hdz MD R2 Aug 31, 2017 08:36
--- NOTE | 2017-08-31 08:41 | HHI.DS ---
Discharge Summary Admission Date Aug 27, 2017 at 05:46 Discharge Date: Aug 31, 2017 Admitting Diagnosis Right large medial sphenoid wing meningioma (1) Right large medial sphenoid wing meningioma Diagnosis: Principal Plan: - Postop day #4: right frontal temporal craniotomy for meningioma - Follow up neurosurgery recommendation: MAGALY drain removed, continue Keppra 500 twice a day - pathology: MENINGES, RIGHT SPHENOID WING, EXCISION:- MENINGIOMA, MENINGOTHELIOMATOUS TYPE (WHO GRADE 1) Status: Resolved (2) Hypertension Diagnosis: Secondary Plan: - Continue home medications, including: - Ramipril 10 twice a day - Follow-up with PCP ICD Codes: I10 - Essential (primary) hypertension Status: Chronic (3) Chronic kidney disease (CKD) Diagnosis: Secondary Plan: Baseline creatinine 1.26 Creatinine 1.03 today. ICD Codes: N18.9 - Chronic kidney disease, unspecified Status: Resolved (4) Diabetes mellitus Diagnosis: Secondary Plan: FS WNL Continue home medications: - Metformin 500 daily - F/u with PCP ICD Codes: E11.9 - Type 2 diabetes mellitus without complications (5) History of chest pain Diagnosis: Secondary Plan: Continue home medications: - Statin - Aspirin ICD Codes: Z87.898 - Personal history of other specified conditions Status: Chronic (6) Hypoalbuminemia Diagnosis: Secondary Plan: Albumin 3.1 -Continue boost shakes ICD Codes: E88.09 - Other disorders of plasma-protein metabolism, not elsewhere classified Status: Acute (7) Hypophosphatemia Diagnosis: Secondary Plan: Phosphorus 2.2 on admission. Phosphorus 3.0 yesterday. Patient received K -Phos 500 twice a day. ICD Codes: E83.39 - Other disorders of phosphorus metabolism Status: Acute Consultants Neurosurgery, family medicine Procedures Date of Surgery: Aug 27, 2017 Preoperative Diagnosis: Right large medial sphenoid wing meningioma Postoperative Diagnosis: Same Procedure: Right anterior skull base/orbitozygomatic approach; right frontotemporal craniotomy for sphenoid wing meningioma resection; BrainLab intraoperative navigation; microsurgical technique Brief History 86 yo M - patient in my clinic presenting for meningioma resection. We are consulted to manage his comorbid and chronic medical conditions including diabetes mellitus and hypertension CBC/BMP: 08/31/17 0520 08/31/17 0520 Significant Findings Laboratory Tests Test 08/29/17 05:00 08/30/17 10:30 08/31/17 05:20 White Blood Count 19.7 TH/MM3 (4.0-11.0) 11.6 TH/MM3 (4.0-11.0) Red Blood Count 3.84 MIL/MM3 (4.50-5.90) 3.61 MIL/MM3 (4.50-5.90) Hemoglobin 11.4 GM/DL (13.0-17.0) 10.7 GM/DL (13.0-17.0) Hematocrit 34.3 % (39.0-51.0) 32.3 % (39.0-51.0) Neutrophils (%) (Auto) 84.5 % (16.0-70.0) Neutrophils # (Auto) 16.6 TH/MM3 (1.8-7.7) 7.8 TH/MM3 (1.8-7.7) Monocytes # (Auto) 1.2 TH/MM3 (0-0.9) Blood Urea Nitrogen 21 MG/DL (7-18) Random Glucose 140 MG/DL (74-106) 124 MG/DL (74-106) Calcium Level 8.1 MG/DL (8.5-10.1) 8.2 MG/DL (8.5-10.1) Chloride Level 108 MEQ/L (98-107) Estimat Glomerular Filtration Rate 64 ML/MIN (>89) 69 ML/MIN (>89) Imaging Last Impressions Head CT 08/28/17 0600 Signed Impressions: Service Date/Time: August 04:46 - CONCLUSION: 1. Postoperative right craniotomy as above with drain in middle cranial fossa, reportedly status post tumor resection. See above discussion. Eddie Julien MD Chest X-Ray 08/27/17 0000 Signed Impressions: Service Date/Time: Sunday, August 27, 2017 13:37 - CONCLUSION: 1. Left subclavian central line in satisfactory position. 2. No pneumothorax. Derick Benoit MD PE at Discharge GENERAL: Elderly gentleman in no acute distress. Sitting comfortably. SKIN: Warm and dry. HEAD: Normocephalic. Well-healing surgical incision with chelsea on the right side of head. MAGALY drain has been removed. EYES: No scleral icterus. No injection or drainage. NECK: Supple, trachea midline. No JVD or lymphadenopathy. CHEST: Central line in left upper chest CARDIOVASCULAR: Regular rate and rhythm without murmurs, gallops, or rubs. RESPIRATORY: Breath sounds equal bilaterally. No accessory muscle use. GASTROINTESTINAL: Abdomen soft, non-tender, nondistended. MUSCULOSKELETAL: No cyanosis or edema. NEUROLOGICAL: Alert and oriented. Afocal. Normal sensation and motor and strength bilaterally. Normal speech. Hospital Course Patient underwent right frontotemporal craniotomy first sphenoid wing meningioma resection on 08/27/17. Patient was subsequently admitted to the surgical ICU for close monitoring. Patient has remained stable since this procedure. Discharged on postoperative day 4 with instructions to follow-up with neurosurgery within the next week. Pt Condition on Discharge: Good Discharge Disposition: Disch w/ Home Health Serv Discharge Instructions DIET: Follow Instructions for: Diabetic Diet Activities you can perform: Regular-No Restrictions Activities to Avoid: Strenuous Activity, Driving Follow up Referrals: Appointment for Follow Up - 1 Week scalp staple removal PCP Follow-up - 1 Week with Lexx Dumont MD New Medications: Hydrocodone-Acetaminophen (Lortab) 5-325 Mg Tab 1 TAB PO Q6H PRN for PAIN, #30 TAB 0 Refills Continued Medications: Acetaminophen (Tylenol Extra Strength) 500 Mg Tablet MG PO Q6HR for Pain Management Aspirin (Aspirin) 81 Mg Chew 81 MG CHEW DAILY, TAB 0 Refills Atorvastatin (Atorvastatin) 20 Mg Tab 20 MG PO HS for Cholesterol Management, #90 TAB 0 Refills B-Complex W/ C & Folic Acid (Folbee Plus) 1 Tab 1 TAB PO DAILY for Nutritional Supplement, #90 TAB 1 Refill Dorzolamide-Timolol Opth Drops (Dorzolamide-Timolol Opth Drops) 22.3-6.8 Mg/Ml Soln 1 DROP EACH EYE BID for Glaucoma, BOTTLE 0 Refills Leuprolide (Monthly) Inj Kit (Eligard Inj Kit) 7.5 Mg Kit Unknown Dose SQ DIRECTED, #1 KIT 0 Refills Metformin (Metformin) 500 Mg Tab 500 MG PO DAILY for Blood Sugar Management, #30 TAB 0 Refills With a meal Multiple Vitamins W/ Minerals (Ocuvite Adult 50+) 1 Cap 1 CAP PO DAILY for Nutritional Supplement, CAP 0 Refills Ramipril (Ramipril) 10 Mg Cap 10 MG PO BID, #180 CAP 1 Refill Emil Hdz MD R2 Aug 31, 2017 08:41
[2017-08-31 12:07] VITALS: BP 139/76; PULSE 60; RESP 20; TEMP 98.3; O2SAT 97
--- NOTE | 2017-08-31 12:27 | HHI.FF ---
Face to Face Verification Diagnosis: (1) Status post craniotomy (2) Right large medial sphenoid wing meningioma Physical Therapy Order: Evaluate and Treat Home Health Nursing Order: Medical education Wound care and dressing changes Nursing assessment with vital signs I have seen patient Rohit Snow on 08/31/17. My clinical findings support the need for the requested home health care services because: Deconditioned w/ increased weakness High risk of falls I certify that my clinical findings support that this patient is homebound because: Post-op weakness Emil Hdz MD R2 Aug 31, 2017 12:27
[2017-09-17] MEDS ORDERED: METF500T PO (14:55)
== END 2017-08-31 12:48 | disposition home health service (06) | DRG 27 ==
LOC: HSDI 08-27 05:46 → N03A 08-27 15:51 → N05A 08-29 14:02
PROVIDERS: ADMIT Neurological Surgery; ATTEND Neurological Surgery
PROC: 8E09XBZ Computer Assisted Procedure of Head and Neck Region (ICD-10-PCS; 2017-08-27)
PROC: 00U20JZ Supplement Dura Mater with Synthetic Substitute, Open Approach (ICD-10-PCS; 2017-08-27)
PROC: 00B20ZZ Excision of Dura Mater, Open Approach (ICD-10-PCS; principal; 2017-08-27 08:15)
DX: D32.0 Benign neoplasm of cerebral meninges (principal); E11.22 Type 2 diabetes mellitus with diabetic chronic kidney disease; E88.09 Other disorders of plasma-protein metabolism, not elsewhere classified; I12.9 Hypertensive chronic kidney disease with stage 1 through stage 4 chronic kidney disease, or unspecified chronic kidney disease; N18.2 Chronic kidney disease, stage 2 (mild); E83.39 Other disorders of phosphorus metabolism; Z79.84 Long term (current) use of oral hypoglycemic drugs; Z85.46 Personal history of malignant neoplasm of prostate; Z85.828 Personal history of other malignant neoplasm of skin; Z87.891 Personal history of nicotine dependence; Z92.3 Personal history of irradiation
CPT/HCPCS: 70450; 71010; 80048; 80053; 82948; 83036; 83735; 84100; 84155; 84439; 84443; 85025; 85027; 86850; 86900; 86901; 86920; 87641; 88304; 88307; 94150; C1713; J0131; J0171; J0461; J0610; J0690; J1100; J1580; J1815; J1953; J2150; J2370; J2405; J3010; J3480; J7050; J7120

== ENCOUNTER → 2017-10-21 | Outpatient (CLI) | payer MEDICARE, BC ==
[~2017-10-21] MED LIST changes: +ACET-822 PO; +ASPI-516 CHEW; +FOLBTAB2 PO
== END ==
LOC: PLAB 11:52
PROVIDERS: ATTEND Urology
DX: C61 Malignant neoplasm of prostate (principal)
CPT/HCPCS: 36415; 84153

== ENCOUNTER → 2018-01-21 | Outpatient (CLI) | payer MEDICARE, BC | LOC: PLAB 13:10 | PROVIDERS: ATTEND Urology | DX: C61 Malignant neoplasm of prostate (principal) | CPT/HCPCS: 36415; 84153 ==

== ENCOUNTER → 2018-04-15 | Outpatient (CLI) | payer MEDICARE, BC ==
[2018-04-15 10:24] LABS: BICARBONATE 28.1 MEQ/L (21.0-32.0); BLOOD UREA NITROGEN 12 MG/DL (7-18); CALCIUM 9.3 MG/DL (8.5-10.1); CHLORIDE 105 MEQ/L (98-107); CREATININE 1.19 MG/DL (0.60-1.30); GLOMERULAR FILTRATION RATE 58 ML/MIN (>89); GLUCOSE,FASTING 115 MG/DL (74-99); SODIUM (NA) 142 MEQ/L (136-145)
[2018-04-15 15:52] LABS: HEMOGLOBIN A1C 5.9 % (4.3-6.0)
== END ==
LOC: PLAB 06:58
PROVIDERS: ATTEND Urology
DX: E11.9 Type 2 diabetes mellitus without complications (principal); C61 Malignant neoplasm of prostate
CPT/HCPCS: 36415; 80048; 83036; 84153